=== PATIENT | male | born 1980 | race Caucasian/White ===

== ENCOUNTER 2020-11-27 18:58 | Emergency (ER) | payer SELFPAY ==
[2020-11-27] MEDS ORDERED: NAPROSYN500 MG PO (19:49)
== END 2020-11-27 20:00 | disposition home or self-care (01) ==
LOC: ER1 18:58
DX: S90.32XA Contusion of left foot, initial encounter (principal); M77.32 Calcaneal spur, left foot; F17.210 Nicotine dependence, cigarettes, uncomplicated; W01.10XA Fall on same level from slipping, tripping and stumbling with subsequent striking against unspecified object, initial encounter; Y92.89 Other specified places as the place of occurrence of the external cause; Y99.0 Civilian activity done for income or pay
CPT/HCPCS: 73630; 99283

== ENCOUNTER 2021-03-31 03:06 | Observation (INO) | payer SELFPAY ==
[~2021-03-31] VITALS: Ht 180.3 cm; Wt 95.3 kg
[~2021-03-31 03:06] MED LIST: NAPROSYN500 MG PO
[2021-03-31 03:55] LABS: BUN/CREATININE RATIO 7 (0-10)
[2021-03-31 04:23] LABS: HEMOGLOBIN 12.9 gm/dl (14.0-17.5); RED BLOOD COUNT 4.22 M/UL (4.20-5.50); WHITE BLOOD COUNT 9.1 K/UL (4.5-11.0)
[2021-04-01 07:11] LABS: HEMOGLOBIN 12.2 gm/dl (14.0-17.5); RED BLOOD COUNT 4.06 M/UL (4.20-5.50)
[2021-04-01 07:13] LABS: WHITE BLOOD COUNT 13.4 K/UL (4.5-11.0)
[2021-04-01] MEDS ORDERED: CYCLOBENZAPRINE10 MG PO (15:48)
[2021-04-01] MEDS ORDERED: HYDROCODON-ACE1 EAC4 PO ×2 (15:48→16:20)
[2021-04-01] MEDS ORDERED: CYCLOBENZAPRINE5 MG PO (16:20)
== END 2021-04-01 16:57 | disposition home or self-care (01) ==
LOC: ER1 03:06 → MED SURG 4 04:06 → CDU 04:06 → MED SURG 4 12:32
PROVIDERS: Family Medicine; ADMIT Surgery
DX: S31.642A Puncture wound with foreign body of abdominal wall, epigastric region with penetration into peritoneal cavity, initial encounter (principal); S36.113A Laceration of liver, unspecified degree, initial encounter; W45.8XXA Other foreign body or object entering through skin, initial encounter; J98.11 Atelectasis; Z20.822 Contact with and (suspected) exposure to COVID-19; Z91.030 Bee allergy status
CPT/HCPCS: 36415; 71045; 74019; 80053; 83605; 85025; 85027; 85610; 85730; 86850; 86900; 86901; 90714; 99285; G0378; G0480; J0690; J1100; J2001; J2405; J2704; J2710; J3010; J7030; J7120; Q9967; U0002